=== PATIENT | male | born 1965 | race African-American/Black ===

== ENCOUNTER 2018-05-07 04:47 | Emergency (ER) | payer SELFPAY ==
[~2018-05-07] VITALS: Ht 182.9 cm; Wt 90.0 kg
[2018-05-07 08:39] LABS: BASOPHILS % 1.1 % (0.0-2.0); HEMATOCRIT. 40.6 % (42.0-52.0); LYMPHOCYTES % 56.2 % (20.0-50.0); MEAN CORPUSCULAR HEMOGLOBIN 31.5 pg (28.0-32.0); MEAN CORPUSCULAR VOLUME 91.5 fL (80.0-94.0); MONOCYTES % 6.7 % (2.0-8.0); PLATELET 240 x1000/uL (130-400); RED BLOOD CELL COUNT 4.43 mill/uL (4.7-6.1); RED CELL DISTRIBUTION WIDTH 14.3 % (11.6-14.6)
[2018-05-07 08:45] LABS: CHLORIDE 107 mEq/L (98-107)
[2018-05-07] MEDS ORDERED: IBUPROFEN 600MG TABLET PO ONE (09:15)
[2018-05-07 12:07] VITALS: BP 129/89
[2018-05-07 12:12] LABS: CLARITY URINE CLEAR (CLEAR); COLOR URINE YELLOW (YELLOW); KETONES URINE NEGATIVE (NEGATIVE); LEUKOCYTE ESTERASE URINE NEGATIVE (NEGATIVE); NITRITE URINE NEGATIVE (NEGATIVE); OCCULT BLOOD URINE NEGATIVE (NEGATIVE); PH URINE 6.5 (4.5-8.0); PROTEIN URINE NEGATIVE (NEGATIVE); UROBILINOGEN URINE 0.2 E.U./dL (0.2-1.0)
== END 2018-05-07 12:14 | disposition home or self-care (01) ==
LOC: ER 04:47
DX: J98.01 Acute bronchospasm (principal); M25.512 Pain in left shoulder; D72.819 Decreased white blood cell count, unspecified; R07.89 Other chest pain; R06.02 Shortness of breath; F17.200 Nicotine dependence, unspecified, uncomplicated; Z96.651 Presence of right artificial knee joint
CPT/HCPCS: 36415; 71045; 83880; 84484; 93005; 99284

== ENCOUNTER 2018-05-13 09:55 | Emergency (ER) | payer SELFPAY ==
[~2018-05-13] VITALS: Ht 177.8 cm; Wt 87.0 kg
[2018-05-13 09:57] VITALS: BP 154/92
== END 2018-05-13 11:17 | disposition home or self-care (01) ==
LOC: ER 09:55
DX: J06.9 Acute upper respiratory infection, unspecified (principal)
CPT/HCPCS: 99283

== ENCOUNTER 2019-12-20 12:41 | Emergency (ER) | payer MEDICAID ==
[~2019-12-20] VITALS: Ht 177.8 cm; Wt 87.0 kg
[2019-12-20 13:03] VITALS: BP 130/99
== END 2019-12-20 13:43 | disposition home or self-care (01) ==
LOC: ER 12:41
DX: Z04.89 Encounter for examination and observation for other specified reasons (principal); R03.0 Elevated blood-pressure reading, without diagnosis of hypertension
CPT/HCPCS: 99281

== ENCOUNTER 2020-01-14 13:02 | Emergency (ER) | payer MEDICAID ==
[~2020-01-14] VITALS: Ht 182.9 cm; Wt 86.0 kg
[2020-01-14 13:17] VITALS: BP 125/75
== END 2020-01-14 14:28 | disposition home or self-care (01) ==
LOC: ER 13:02
DX: S50.862A Insect bite (nonvenomous) of left forearm, initial encounter (principal); L03.114 Cellulitis of left upper limb; Z98.890 Other specified postprocedural states; W57.XXXA Bitten or stung by nonvenomous insect and other nonvenomous arthropods, initial encounter; Y93.89 Activity, other specified; Y92.018 Other place in single-family (private) house as the place of occurrence of the external cause
CPT/HCPCS: 99283

== ENCOUNTER 2020-03-06 11:35 | Emergency (ER) | payer OTHER, MEDICAID ==
[~2020-03-06] VITALS: Ht 182.9 cm; Wt 86.0 kg
[2020-03-06 11:37] VITALS: BP 142/73
[2020-03-06 12:08] LABS: BASOPHILS % 1.8 % (0.0-2.0); EOSINOPHILS % 2.2 % (0.0-5.0); HEMATOCRIT. 42.3 % (42.0-52.0); HEMOGLOBIN. 14.7 g/dL (14.0-18.0); LYMPHOCYTES % 61.4 % (20.0-50.0); MEAN CORPUSCULAR HEMOGLOBIN 33.2 pg (28.0-32.0); MEAN CORPUSCULAR VOLUME 95.7 fL (80.0-94.0); MEAN PLATELET VOLUME 7.2 fl (7.4-10.4); MONOCYTES % 7.8 % (2.0-8.0); NEUTROPHILS % 26.8 % (40.0-76.0); PLATELET 198 x1000/uL (130-400); RED BLOOD CELL COUNT 4.43 mill/uL (4.7-6.1); RED CELL DISTRIBUTION WIDTH 13.4 % (11.6-14.6)
[2020-03-06 12:15] LABS: CHLORIDE 109 mEq/L (98-107)
== END 2020-03-06 13:24 | disposition home or self-care (01) ==
LOC: ER 11:35
DX: R11.10 Vomiting, unspecified (principal); Z98.890 Other specified postprocedural states
CPT/HCPCS: 36415; 80053; 85025; 99283

== ENCOUNTER 2020-05-02 07:53 | Emergency (ER) | payer OTHER, MEDICAID ==
[~2020-05-02] VITALS: Ht 182.9 cm; Wt 87.0 kg
[2020-05-02 08:18] VITALS: BP 137/79
[2020-05-02] MEDS ORDERED: ACETAMINOPHEN 325MG TABLET PO ONE (09:00)
== END 2020-05-02 10:24 | disposition home or self-care (01) ==
LOC: ER 07:53
DX: S22.31XA Fracture of one rib, right side, initial encounter for closed fracture (principal); S27.9XXA Injury of unspecified intrathoracic organ, initial encounter; Z98.890 Other specified postprocedural states; X58.XXXA Exposure to other specified factors, initial encounter; Y93.89 Activity, other specified; Y92.89 Other specified places as the place of occurrence of the external cause; Y99.8 Other external cause status
CPT/HCPCS: 71101; 99283